=== PATIENT | male | born 1965 | race Caucasian/White ===

== ENCOUNTER 2023-10-02 21:24 | Emergency (ER) | payer MEDICARE, OTHER ==
[2023-10-02] MEDS ORDERED: Ketorolac Tromethamine 30 MG (1 mL) VIAL ONE (22:58)
[2023-10-02] MEDS ORDERED: HYDROcodone/Acetaminophen 5/325 mg Tablet ONE (22:58)
== END 2023-10-02 23:19 | disposition home or self-care (01) ==
LOC: EDBD 21:24 → ERS 21:24
DX: S30.0XXA Contusion of lower back and pelvis, initial encounter (principal); F17.220 Nicotine dependence, chewing tobacco, uncomplicated; W01.0XXA Fall on same level from slipping, tripping and stumbling without subsequent striking against object, initial encounter
CPT/HCPCS: 72072; 72100; 96372; 99283; J1885